=== PATIENT | female | born 1990 | race Caucasian/White ===

== ENCOUNTER 2021-06-10 16:43 | Emergency (ER) | payer SELFPAY ==
[~2021-06-10] VITALS: Ht 170.2 cm; Wt 55.9 kg
[2021-06-10 16:51] VITALS: TEMP 99
[2021-06-10 17:50] LABS: BASO % 0.5 % (0.0-2.0); EOS % 0.1 % (0.0-4.0); GRAN # 5.5 K/mm3 (1.4-6.5); GRAN % 65.5 % (42.2-75.2); HEMATOCRIT 38.5 % (37.0-47.0); HEMOGLOBIN 13.1 g/dl (12.5-16.0); LYMPH # 2.2 K/mm3 (1.2-3.4); LYMPH % 26.7 % (20.0-51.0); MEAN CELL VOLUME 88 fl (80.0-100.0); MEAN CORPUSCULAR HEMOGLOBIN 30 pg (27-31); MEAN CORPUSCULAR HGB CONC 34 g/dl (33.0-37.0); MEAN PLATELET VOLUME 9.4 fl (7.4-10.4); MONO # 0.6 K/mm3 (0.1-0.6); PLATELET COUNT 344 K/mm3 (130-400); REDCELL DISTRIBUTION WIDTH-CV 12.5 % (11.5-14.5)
[2021-06-10 18:31] LABS: ALBUMIN 4.5 gm/dL (3.5-5.0); BILIRUBIN,TOTAL 0.9 mg/dL (0.2-1.2); CALCIUM 9.2 mg/dL (8.4-10.2); CREATININE, serum 0.71 mg/dL (0.57-1.11); POTASSIUM 3.6 mmol/L (3.5-4.5); TOTAL PROTEIN 7.7 gm/dL (6.2-8.1)
[2021-06-10 18:51] LABS: PROLACTIN 16.4 ng/mL (5.18-26.53)
[2021-06-10 19:51] LABS: COLLECTION METHOD CLEAN CATCH
[2021-06-10 19:59] LABS: MUCOUS Present (NOT PRESENT); PH 6 (5-8); SQUAMOUS EPITHELIAL 0-2 /hpf (0-10); URINE APPEARANCE Clear (CLEAR/HAZY); URINE BACTERIA None Seen /hpf (NONE SEEN); URINE BILIRUBIN Negative (NEGATIVE); URINE BLOOD 2+ (NEGATIVE); URINE COLOR Yellow (YELLOW); URINE GLUCOSE Negative (NEGATIVE); URINE KETONE 1+ (NEGATIVE); URINE LEUKOCYTE ESTERASE Negative (NEGATIVE); URINE NITRATE Negative (NEGATIVE); URINE PROTEIN(semi-quant) Negative (NEGATIVE); URINE RBC 0-2 /hpf (0-2)
[2021-06-10 20:16] LABS: TRICYCLIC ANTIDEPRESS URINE NEGATIVE
[2021-06-10] MEDS ORDERED: LEXAPRO 10MG10 MG PO ×2 (20:22→20:28)
[2021-06-10 20:33] VITALS: BP 117/79; PULSE 86
== END 2021-06-10 20:33 | disposition home or self-care (01) ==
LOC: COL.ER 16:43
PROVIDERS: Physician Assistant
DX: R25.8 Other abnormal involuntary movements (principal); F43.10 Post-traumatic stress disorder, unspecified
CPT/HCPCS: J7030